=== PATIENT | female | born 1990 | race Caucasian/White ===

== ENCOUNTER 2023-11-28 23:14 | Emergency (ER) | payer SELFPAY ==
[2023-11-28 23:49] VITALS: BP 138/88; PULSE 101; TEMP 36.8; O2SAT 97; BMI 23.9
--- NOTE | 2023-11-29 00:32 | ED_ITS ---
HPI - Female Genitourinary General Chief complaint: Vaginal Bleeding Stated complaint: r/o miscarrage Time Seen by Provider: 11/29/23 00:28 Source: patient Mode of arrival: walk-in Limitations: no limitations History of Present Illness HPI Narrative: patient states she delivered a baby about 6 months ago that she is breast feeding. during her she developed a blood clot and was treated with heparin while . Post delivery she was prescribed Xarelto which she has been on. States her last menses was 09/09. States she took a home test about 2 weeks ago and it was positive. she has continued to take plavix and xarelto and has been taking them all alone she now presents concern she is having a miscarriage. mild abdominal pain. No fever, nausea or vomiting Related Data Home Medications ?Medication ?Instructions ?Recorded ?Confirmed clopidogrel 75 mg tablet 75 mg PO DAILY 11/28/23 11/28/23 rivaroxaban 15 mg tablet (Xarelto) 15 mg PO DAILY 11/28/23 11/28/23 Allergies Allergy/AdvReac Type Severity Reaction Status Date / Time No Known Drug Allergies Allergy Verified 11/28/23 23:46 Review of Systems ROS Status of ROS 10 or more systems reviewed and unremark able except as noted in history and below Exam Constitutional Vital Signs, click to edit/add: Last Vital Signs Temp 98.2 F 11/28/23 23:49 Pulse 101 H 11/28/23 23:49 Resp 18 11/28/23 23:49 BP 138/88 11/28/23 23:49 Pulse Ox 97 11/28/23 23:49 O2 Del Method Room Air 11/28/23 23:49 Common normals: no apparent distress, average body habitus, oriented x3, no limitations, healthy appearing, alert and well nourished Eye Common normals: EOMs intact bilaterally and conjunctivae normal Respiratory Common normals: normal respiratory effort, no retractions, no use of accessory muscles and clear to auscultation bilaterally Cardio Common normals: regular rate, regular rhythm, S1 normal heart sound and S2 normal heart sound GI Common normals: Normal to inspection, nondistended, normoactive bowel sounds present, soft to palpation and non-tender Extremity Common normals: normal to inspection and full ROM Neuro Common normals: oriented x3, CN's II-XII intact bilaterally, moves all extremities and no focal motor deficits Psych Appearance: grossly normal Course Vital Signs Vital signs: Vital Signs Temperature 98.2 F 11/28/23 23:49 Pulse Rate 101 H 11/28/23 23:49 Respiratory Rate 18 11/28/23 23:49 Blood Pressure 138/88 11/28/23 23:49 Pulse Oximetry 97 11/28/23 23:49 Oxygen Delivery Method Room Air 11/28/23 23:49 Temperature 98.2 F 11/28/23 23:49 Pulse Rate 101 H 11/28/23 23:49 Respiratory Rate 18 11/28/23 23:49 Blood Pressure 138/88 11/28/23 23:49 Pulse Oximetry 97 11/28/23 23:49 Oxygen Delivery Method Room Air 11/28/23 23:49 MDM - Female Genitourinary MDM Narrative Medical decision making narrative: patient presented with complaint of miscarriage. Delivered healthy child 6 months ago who she is breast feeding. States she experienced blood clot during her last and was on heparin during the end of her and was started on Xarelto and plavix after delivery. Has been taking both ever since. Found out she was with home preg. test 2 weeks ago. Started spotting 11/20/23 for few days. Over last 3 days has been passing clots. Only mild abdominal cramping pain. Lab confirms . 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 Patient dischrged with lab slip to have her quant. B Hcg rechecked and advised to return if increased bleeding , pain or light headiness Lab Data Labs: Lab Results 11/29/23 Range/Units 01:05 WBC 13.8 H (4.0-11.0) 10^3/uL RBC 4.25 (4.20-5.40) 10^6/uL Hgb 12.4 (12.0-16.0) g/dL Hct 38.4 (36.0-48.0) % MCV 90.4 (81.0-99.0) fL MCH 29.2 (26.7-34.0) pg MCHC 32.3 (29.9-35.2) g/dL RDW 14.3 (11.0-15.0) % Plt Count 368 (150-450) 10^3/uL MPV 9.8 (9.5-13.5) fL Neut % (Auto) 72.0 (43.0-75.0) % Lymph % (Auto) 19.8 L (20.5-60.0) % [place] % (Auto) 5.3 (1.7-12.0) % Eos % (Auto) 2.2 (0.9-7.0) % Baso % (Auto) 0.4 (0.2-2.0) % Neut # (Auto) 9.9 H (1.4-6.5) 10^3/uL Lymph # (Auto) 2.7 (1.2-3.8) 10^3/uL [place] # (Auto) 0.7 (0.3-0.8) 10^3/uL Eos # (Auto) 0.3 (0.0-0.7) 10^3/uL Baso # (Auto) 0.1 (0.0-0.1) 10^3/uL Abs Immat Gran (auto) 0.04 H (0.00-0.03) 10^3/uL Imm/Tot Granulo (auto) 0.3 (0.0-0.5) % Sodium 139 (136-145) mmol/L Potassium 3.3 L (3.5-5.1) mmol/L Chloride 105 (98-107) mmol/L Carbon Dioxide 24.2 (21.0-32.0) mmol/L Anion Gap 13.1 BUN 9.0 (7.0-18.0) mg/dL Creatinine 0.69 (0.55-1.02) mg/dL Est GFR ( Amer) >60 (>=60) Est GFR (Non-Af Amer) >60 (>=60) BUN/Creatinine Ratio 13.0 Glucose 101 (74-106) mg/dL Calcium 10.6 H (8.5-10.1) mg/dL HCG, Quant [id number] mIU/mL Discharge Plan Discharge Stand Alone Forms: Portal Instructions Chief Complaint: Vaginal Bleeding Clinical Impression: Threatened Patient Disposition: Home, Self-Care Prescriptions / Home Meds: No Action clopidogrel 75 mg tablet 75 mg PO DAILY Xarelto 15 mg tablet 15 mg PO DAILY Print Language: Italian Referrals: RUSS CASH [Primary Care Provider] - 1 week
[2023-11-29 01:11] LABS: Basophils Absolute Auto 0.1 10^3/uL (0.0-0.1); Basophils Percent Auto 0.4 % (0.2-2.0); Eosinophils Absolute Auto 0.3 10^3/uL (0.0-0.7); Eosinophils Percent Auto 2.2 % (0.9-7.0); Hematocrit 38.4 % (36.0-48.0); Hemoglobin 12.4 g/dL (12.0-16.0); Immature Granulocytes Abs Auto 0.04 10^3/uL (0.00-0.03); Immature Granulocytes Pct Auto 0.3 % (0.0-0.5); Lymphocytes Absolute Auto 2.7 10^3/uL (1.2-3.8); Lymphocytes Percent Auto 19.8 % (20.5-60.0); Mean Corpuscular HGB Conc 32.3 g/dL (29.9-35.2); Mean Corpuscular Hemoglobin 29.2 pg (26.7-34.0); Mean Corpuscular Volume 90.4 fL (81.0-99.0); Mean Platelet Volume 9.8 fL (9.5-13.5); Monocytes Absolute Auto 0.7 10^3/uL (0.3-0.8); Monocytes Percent Auto 5.3 % (1.7-12.0); Neutrophils Absolute Auto 9.9 10^3/uL (1.4-6.5); Platelet Count 368 10^3/uL (150-450); Red Blood Count 4.25 10^6/uL (4.20-5.40); Red Cell Distribution Width 14.3 % (11.0-15.0); White Blood Count 13.8 10^3/uL (4.0-11.0)
[2023-11-29 01:19] LABS: Anion Gap 13.1; Calcium 10.6 mg/dL (8.5-10.1); Carbon Dioxide 24.2 mmol/L (21.0-32.0); Chloride 105 mmol/L (98-107); Estimated GFR (African America >60 (>=60); Estimated GFR (Non-African Ame >60 (>=60); Glucose 101 mg/dL (74-106); Potassium 3.3 mmol/L (3.5-5.1); Sodium 139 mmol/L (136-145)
[2023-11-29 01:48] LABS: HCG Quantitative 22117 mIU/mL
== END 2023-11-29 02:37 | disposition home or self-care (01) ==
PROVIDERS: Emergency Provider Internal Medicine; PCP Internal Medicine
DX: O20.0 Threatened abortion (principal); Z3A.00 Weeks of gestation of pregnancy not specified; Z79.02 Long term (current) use of antithrombotics/antiplatelets; Z79.01 Long term (current) use of anticoagulants; Z86.718 Personal history of other venous thrombosis and embolism
CPT/HCPCS: 36415; 80048; 84702; 85025; 99283